=== PATIENT | male | born 1985 | race Caucasian/White ===

== ENCOUNTER 2020-03-25 05:49 | Emergency (ER) | payer SELFPAY ==
[~2020-03-25] VITALS: Ht 185.4 cm; Wt 72.6 kg
[2020-03-25] MEDS ORDERED: OMEPRAZOLE20 MG PO (06:54)
== END 2020-03-25 07:03 | disposition home or self-care (01) ==
LOC: ED 05:49
DX: R10.13 Epigastric pain (principal); F17.200 Nicotine dependence, unspecified, uncomplicated; Z88.0 Allergy status to penicillin
CPT/HCPCS: 80053; 81001; 83690; 85025; 96374; 96375; 99284-25; C9113; J2405; J7030